=== PATIENT | female | born 1985 | race Caucasian/White ===

== ENCOUNTER 2021-01-15 08:07 | Emergency (ER) | payer MEDICAID ==
[~2021-01-15] VITALS: Ht 172.7 cm; Wt 74.0 kg
[2021-01-15] MEDS ORDERED: ACETAMINOPHEN 325MG TABLET PO ONE (08:30)
[2021-01-15] MEDS ORDERED: TETANUS, DIPHTHERIA, PERTUSSIS VAC/PF 0.5ML (>10YR OLD) IM ONE (08:30)
[2021-01-15] MEDS ORDERED: KETOROLAC 60MG/2ML VIAL IM ONE (10:45)
[2021-01-15] MEDS ORDERED: LIDOCAINE HCL/EPINEPHRINE 1%-EPI 1:100,000 20 ML VIAL INFIL ONE (10:45)
[2021-01-15 11:13] VITALS: BP 118/74
[2021-01-15] MEDS ORDERED: CEFAZOLIN SODIUM 1000MG/VIAL IM ONE (12:15)
[2021-01-15] MEDS ORDERED: CEPH500C2 MT (12:30)
[2021-01-15] MEDS ORDERED: IBUP-2029 MT (12:30)
== END 2021-01-15 13:13 | disposition home or self-care (01) ==
LOC: ER 08:07
DX: S01.01XA Laceration without foreign body of scalp, initial encounter (principal); R55 Syncope and collapse; M54.50 Low back pain, unspecified; Z90.49 Acquired absence of other specified parts of digestive tract; X58.XXXA Exposure to other specified factors, initial encounter; Y93.89 Activity, other specified; Y92.89 Other specified places as the place of occurrence of the external cause; Y99.8 Other external cause status
CPT/HCPCS: 12002; 70450; 72100; 73562; 73590; 73610; 73630; 81025; 90471; 90715; 96372; 99284; J0690; J1885; J3490; L1830; Z7610

== ENCOUNTER 2021-01-27 09:02 | Emergency (ER) | payer MEDICAID ==
[~2021-01-27] VITALS: Ht 149.9 cm; Wt 65.0 kg
[~2021-01-27 09:02] MED LIST: CEPH500C2 MT; IBUP-2029 MT
[2021-01-27 09:05] VITALS: BP 121/61
== END 2021-01-27 09:24 | disposition home or self-care (01) ==
LOC: ER 09:02
DX: Z48.02 Encounter for removal of sutures (principal)
CPT/HCPCS: 99281; Z7610